=== PATIENT | female | born 1955 | race Asian ===

== ENCOUNTER 2017-03-13 06:33 | Emergency (ER) | payer BC ==
[~2017-03-13] VITALS: Ht 149.9 cm; Wt 56.8 kg
[2017-03-13] MEDS ORDERED: METF500T4 PO (06:40)
[2017-03-13 07:17] VITALS: BP 162/89
[2017-03-13 09:04] LABS: GLUCOSE,POINT OF CARE 223 MG/DL (70-110)
== END 2017-03-13 08:30 | disposition home or self-care (01) ==
LOC: EMS 06:35
DX: R04.0 Epistaxis (principal); E11.9 Type 2 diabetes mellitus without complications; E78.00 Pure hypercholesterolemia, unspecified; I10 Essential (primary) hypertension
CPT/HCPCS: 82962; 99282